=== PATIENT | female | born 1995 | race Two or more races ===

== ENCOUNTER 2017-08-13 19:02 | Emergency (ER) | payer SELFPAY ==
[~2017-08-13] VITALS: Ht 157.5 cm; Wt 75.0 kg
[2017-08-13 19:05] VITALS: BP 133/80; PULSE 117; RESP 16; TEMP 98.9; O2SAT 98
[2017-08-13 19:34] VITALS: PULSE 105; RESP 18; O2SAT 100
--- NOTE | 2017-08-13 19:41 | PD ---
HPI Chief Complaint: Musculoskeletal Complaint Time Seen by Provider: 19:15 Travel History International Travel<30 days: No Contact w/Intl Traveler<30days: No Traveled to known affect area: No History of Present Illness HPI 22-year-old female presents to the emergency room for evaluation of left anterior hip pain for the past 4 days. Pain started 2 days after patient did multiple squats at her job. States she was sore in other parts of her legs after the squats. She denies any other trauma or injury. States pain has gradually worsened over the past 4 days. She went to [facility] yesterday when they performed x-rays and told her that everything was normal. Told her that she has a urinary tract infection which may be causing her pain. She is prescribed ibuprofen and Macrobid. Ibuprofen decreases the pain moderate amount but pain is constant and throbbing. Pain is worsened with any range of motion. No chronic medical conditions or daily medications. Denies fever. PFSH Past Medical History ?: Not LMP: 07/17/2017 Social History Tobacco Use: No Allergies-Medications (Allergen,Severity, Reaction): Coded Allergies: No Known Allergies (Unverified , 08/13/17) Reported Meds & Prescriptions Reported Meds & Active Scripts Active No Active Prescriptions or Reported Medications Review of Systems Except as stated in HPI: all other systems reviewed are Neg Physical Exam Narrative GENERAL: Well-nourished, well-developed female in no acute distress. Afebrile. Ambulatory with antalgic gait. SKIN: Focused skin assessment warm/dry. No erythema or ecchymosis. HEAD: Normocephalic. EYES: No scleral icterus. No injection or drainage. NECK: Supple, trachea midline. No JVD or lymphadenopathy. CARDIOVASCULAR: Regular rate and rhythm without murmurs, gallops, or rubs. RESPIRATORY: Breath sounds equal bilaterally. No accessory muscle use. GASTROINTESTINAL: Abdomen soft, non-tender, nondistended. No guarding. No masses around the inguinal canal. No pelvic tenderness. MUSCULOSKELETAL: No cyanosis, or edema. Limited range of motion of left hip secondary to pain. Pain is slightly decreased with passive range of motion. 2 + dorsalis pedis pulse. Extreme tenderness to palpation of the proximal rectus femoral muscle on the left side. Data Data Last Documented VS Vital Signs Date Time Temp Pulse Resp B/P (MAP) Pulse Ox O2 Delivery O2 Flow Rate FiO2 08/13/17 19:05 98.9 117 16 133/80 (97) 98 MDM Medical Decision Making Medical Screen Exam Complete: Yes Emergency Medical Condition: Yes Medical Record Reviewed: Yes Differential Diagnosis Groin strain, sprain, osteoarthritis, occult fracture unlikely Narrative Course 22-year-old female presents to the emergency room for evaluation of left anterior hip pain for the past 4 days. Symptoms have gradually been worsening. She reports getting multiple squats 2 days prior to symptom onset. She went to [facility] yesterday and had x-rays that were negative. Patient is ambulatory with antalgic gait. There is extreme tenderness to palpation in the left rectus femoral tendon. Pain is worsened with any flexion or extension of the left hip but decreased with passive range of motion. Left lower extremity is neurovascularly intact with 2+ dorsalis pedis pulse. No masses in the inguinal canal. No lymphadenopathy, erythema, edema, or ecchymosis. Abdomen soft, nontender. No peritoneal signs. History and physical exam are consistent with groin strain. Patient was told to continue ibuprofen as directed, as needed for symptoms and follow up with her primary care physician or return for worsening symptoms. She'll be given a work note to allow rest. He understands and agrees to plan. Diagnosis Primary Impression: Strain of left hip adductor muscle Qualified Codes: S76.012A - Strain of muscle, fascia and tendon of left hip, initial encounter Referrals: Primary Care Physician Departure Forms: Tests/Procedures, Work Release Enter return to work date: Aug 16, 2017 Additional Instructions: Rest and drink plenty of fluids. Take ibuprofen with food as directed, as needed for pain. Apply ice to the affected area for 20 minutes at a time, as needed for pain and swelling. Follow-up with a primary care physician. Return to the emergency room for worsening symptoms. Scripts No Active Prescriptions or Reported Meds Disposition: 01 DISCHARGE HOME Condition: Stable Kristen Donovan Aug 13, 2017 19:41
== END 2017-08-13 19:53 | disposition home or self-care (01) ==
LOC: NEPK 19:02
DX: S76.012A Strain of muscle, fascia and tendon of left hip, initial encounter (principal); X50.9XXA Other and unspecified overexertion or strenuous movements or postures, initial encounter
CPT/HCPCS: 99282